=== PATIENT | female | born 1985 | race Caucasian/White ===

== ENCOUNTER 2016-09-19 14:54 | Emergency (ER) | payer MEDICAID ==
[~2016-09-19] VITALS: Ht 162.6 cm; Wt 77.6 kg
[2016-09-19 14:54] VITALS: BP_SYST 114
[2016-09-19 16:54] VITALS: BP_SYST 114
== END 2016-09-19 16:54 | disposition home or self-care (01) ==
LOC: SED 14:54
DX: O9A.212 Injury, poisoning and certain other consequences of external causes complicating pregnancy, second trimester (principal); Z3A.21 21 weeks gestation of pregnancy
CPT/HCPCS: 76805-TC; 99284